=== PATIENT | female | born 1940 | race Caucasian/White ===

== ENCOUNTER 2017-01-02 13:41 | Inpatient (IN) | payer MEDICARE ==
[~2017-01-02] VITALS: Ht 154.9 cm; Wt 58.6 kg
[~2017-01-02 13:41] MED LIST: ALBU8.5H2 INH; ASPI-973 PO; ATRINH INH; CARV25TA2 PO; CLOP75TA3 PO; CYAN1TAB42 PO; INSLIS SUBQ; OMEG1CAP17 PO; PRAV40TA PO; VIT1CAPS8 PO
[2017-01-02 13:57] VITALS: BP 129/72; PULSE 68; O2SAT 91
--- NOTE | 2017-01-02 14:06 | ED.REPORT ---
HPI-Trauma Minor / Fall Date of Service January 02, 2017 ED Provider: Al Alexander MD Patient is a 76 year old female with a history of TIA, CHF, pace maker placement , COPD,diabetes, hyperlipidemia and hypertension who presents to the ED via EMS due to a fall at home. Associated symptoms include left hip pain and the inability to bear weight on the leg. The patient reports that she was able to stand after falling. Nursing Notes Stated Complaint: GLF Chief Complaint: Multiple Trauma/Fall Nursing Notes Reviewed: Yes Allergies: Coded Allergies: ciprofloxacin HCl (Verified Allergy, Mild, 01/02/17) metronidazole (Verified Allergy, Mild, 01/02/17) codeine (Verified Adverse Reaction, Mild, VOMITING IMMEDIATELY, 01/02/17) Scheduled Amlodipine (Amlodipine) 5 Mg Tablet 5 MG PO DAILY Carvedilol (Carvedilol) 25 Mg Tablet 25 MG PO BID Clopidogrel Bisulfate (Plavix) 75 Mg Tablet 75 MG PO DAILY Fluticasone/Salmeterol (Advair 250-50 Diskus) 60 Puff/Inh Disk 1 PUFF INHALATION BID Insulin Glargine (Lantus U100 Solostar Insulin Pen) 100 Unit/1 Ml Insuln.pen 23 UNIT SUBQ QAM Insulin Glargine (Lantus U100 Solostar Insulin Pen) 100 Unit/1 Ml Insuln.pen 21 UNIT SUBQ QPM Insulin Human Lispro (HumaLOG U100 Insulin Vial) 100 Unit/Ml Unit UNIT SUBQ TIDWM sliding scale insulin Lisinopril / HCTZ 20-25 mg (Lisinopril / HCTZ 20-25 mg) 1 Each Tablet 1 EACH PO DAILY Metformin (Glucophage) 1,000 Mg Tablet 500 MG PO BID [place]-3 Fatty Acids/Fish Oil (Fish Oil Conc 1,000 mg Softgel) 1 Each Capsule 1 EACH PO DAILY Pravastatin (Pravastatin) 40 Mg Tablet 40 MG PO DAILY Tiotropium [place] (Spiriva) 18 Mcg Cap.w.dev 18 MCG INHALATION DAILY Vit C/Vit E/Lutein/Min/[place]-3 (Ocuvite Softgel) 1 Each Capsule 1 EACH PO DAILY Scheduled PRN Albuterol HFA (Proair HFA) 8.5 Gm Hfa.aer.ad 1-2 PUFFS INH Q4H PRN PRN For Shortness of Breath General Time Seen by MD: 14:04 Chief Complaint Fall Hx Obtained From: Patient Arrived By: Ambulance Onset Occurred: Just prior to arrival Symptom Duration: Since onset Caused by: Fall on ground Location: Hip left Recent Healthcare: No recent hospitalization, Recent doctor visit Past Medical History Past Medical History Notes: Code status: no code Admitted to the hospotal 07/21-07/26 in August 2015for urinary tract sepsis, syncope, alterned mental status, thrombocytopenia, and encephalopathy due to sepsis PCP: Dr. Dragan Mauro Past Medical History Hypertension (awaiting workup by CT imaging to evaluate for possible renal artery stenosis) Severe cardiomyopathy-status post AICD ([employer], implanted [address] Lama) Diabetes, type II History of TIA Chronic left bundle-branch block Code status: DNR/Do not intubate Reports: COPD, Cancer, Congestive heart failure, Diabetes mellitus, Hyperlipidemia, Hypertension, Stroke, Transient ischemic attack Reports: Urinary tract infection Past Surgical History Reports: Cataract surgery Reports: Pacemaker insertion Smoking History Current Every Day Smoker, Light Tobacco Smoker Social History Last admit was listed as DO NOT RESUSCITATE DO NOT INTUBATE Alcohol Use: Denies alcohol use Drug Use: Denies drug use Other Social History: Lives alone, Local resident Ambulatory Status Independent Review of Systems Constitutional: Denies: Fever Respiratory: Denies: Non-productive cough, Shortness of breath Musculoskeletal: Reports: Extremity pain Neurologic: Reports: Problem walking Complete sys rev & neg: except as marked. GI: Denies: Abdominal pain Physical Exam Initial Vital Signs Vital Signs (First) Date Time Temp Pulse Resp B/P Pulse Ox O2 Delivery O2 Flow Rate FiO2 01/02/17 13:57 36.7 68 129/72 91 Room Air Initial VS: Reviewed General/Constitutional: Awake, Alert Neck: Atraumatic, Supple, Full range of motion Head / Eyes: Atraumatic, Normocephalic, PERRL, EOMI Respiratory / Chest: Atraumatic, No respiratory distress Cardiovascular: Heart rate NL, Regular rhythm, Heart sounds NL Lower Extremity / Pelvis / MS: Atraumatic, Full range of motion, Neurologic intact, Vascular intact from range of motion of the left hip Skin: Atraumatic, Color NL, No rash, Warm, Dry Neurologic: Oriented X3, Speech NL, No motor deficits, No sensory deficits distal pulses intact Psychiatric: Affect NL, Mood NL Interpretation & Diagnostics Interpretation & Diagnostics: HIP CT: IMPRESSION: Subcapital left femoral neck fracture. Possible subtle nondisplaced fracture of the right pubic body, however recommend clinical correlation to point tenderness since this is technically indeterminate. Diffuse osteopenia Dictated by: Lucio Black M.D. on 01/02/2017 at 15:54 Approved by: Lucio Black M.D. on 01/02/2017 at 15:59 Lab Results Interpretation Result Diagram: 01/03/17 0535 01/03/17 0535 Test 01/02/17 14:08 01/02/17 15:09 01/02/17 15:38 Total Bilirubin 0.2mg/dL (0.0-1.2) Aspartate Amino Transf (AST/SGOT) 27U/L (0-50) Alanine Aminotransferase (ALT/SGPT) 18U/L (0-32) Alkaline Phosphatase 57U/L (25-165) Troponin T < 0.010ug/L (0.0-0.011) Total Protein 6.8g/dL (6.4-8.4) Albumin 3.5g/dL (3.4-5.0) Parathyroid Hormone (Intact) 92pg/mL (15-65) Urine Color Yellow (YELLOW) Urine Appearance Clear (CLEAR,HAZY) Urine pH 6.0 (5.0-8.0) Urine Specific [place] 1.010 (1.003-1.035) Urine Protein Negativemg/dL (NEG,TRACE) Urine Glucose (UA) 500mg/dL (NEGATIVE) Urine Ketones Negativemg/dL (NEGATIVE) Urine Occult Blood Negative (NEGATIVE) Urine Nitrite Positive (NEGATIVE) Urine Bilirubin Negative (NEGATIVE) Urine Urobilinogen Normalmg/dL (NORMAL) Urine Leukocyte Esterase Trace (NEGATIVE) Urine RBC 0-2/hpf (0-2) Urine WBC 11-50/hpf (0-5) Urine Epithelial Cells Few/hpf (NONE-MOD) Urine Crystals None seen (NONE SEEN) Urine Bacteria Many/hpf (NONE-FEW) Urine Hyaline Casts None/lpf (NONE) Urine Granular Casts None seen (NONE SEEN) Urine Waxy Casts None seen (NONE SEEN) Urine Red Blood Cell Casts None seen (NONE SEEN) Urine White Blood Cell Casts None seen (NONE SEEN) Urine Mucus None seen (None Seen) Urine Trichomonas None seen (NONE SEEN) Urine Yeast None (NONE SEEN) Urinalysis Comment None Urine Culture Reflexed Indicated ECG Interpretation ECG Interpretation: paced rate Time: 14:09 Interpreted by: ED physician Normal ECG Interpretation: Normal rate (67) X-Ray Interpretation Xray Interpretation: IMPRESSION: Left femoral neck fracture Dictated by: Lucio Black M.D. on 01/02/2017 at 15:12 Approved by: Lucio Black M.D. on 01/02/2017 at 15:14 X-Ray Ordered: Hip left Interpretation / Wet Read by: Interpret - Radiologist Re-Eval/Medical Decision Med Decision/Clinical Course 76-year-old female history of CHF, pacemaker, TIA presenting with, will fall and left hip fracture. Discussed with orthopedics. Admitted to hospitalist. LLE neurovascularly intact vital signs stable admission. Source of Hx: Old records Re-Evaluation/Progress #1: Time of Eval: 15:37 Re-Evaluation/Progress Note: Discussed results and plan for admit. The patient understands and agrees to the plan for admit. All questions were addressed. Re-Evaluation/Progress #2: Time of Eval: 16:26 Re-Evaluation/Progress Note: Discussed code status: no code Consultation #1: Referral / Consult Name: Gurwinder Duke DO Consulted With: On-call physician (ortho) Call Returned at: 15:20 Channel Marketing Coordinator: Agrees with eval, Agrees with plan Note: Recommends the patient be admitted Consultation #2: Referral / Consult Name: Markel Hahn MD Consulted With: Hospitalist Call Returned at: 16:24 Channel Marketing Coordinator: Agrees with eval, Agrees with plan, Accepts admit Counseled Regarding: Diagnosis, Lab results, Need for admission Discharge & Departure Impression: Primary Impression: Hip fracture Encounter type: initial encounter Fracture type: closed Laterality: left Qualified Code: S72.002A - Fracture of unspecified part of neck of left femur, initial encounter for closed fracture Additional Impression: UTI (urinary tract infection) Urinary tract infection type: site unspecified Hematuria presence: without hematuria Qualified Code: N39.0 - Urinary tract infection, site not specified Disposition: ADMITTED TO HOSPITAL Discharge Condition All VS Reviewed: Yes Condition: Stable Referrals: Shawn Witt (PCP) Scribe Attestation Portions of this note were transcribed by Felicity Tolentino. I, Dr. Kalyani Tomlinson personally performed the history, physical exam and medical decision-making; I reviewed and confirmed the accuracy of the information in the transcribed note. Signed by: Sindhu Van, 01/02/17 and 1600 copies to: Shawn Witt Ben M MD January 02, 2017 14:06 Lisa Tolentino January 02, 2017 14:37 Dictated by: Lucio Black M.D. on 01/02/2017 at 15:12 Approved by: Lucio Black M.D. on 01/02/2017 at 15:14 X-Ray Ordered: Hip left Interpretation / Wet Read by: Interpret - Radiologist Re-Eval/Medical Decision Source of Hx: Old records Re-Evaluation/Progress #1: Time of Eval: 15:37 Re-Evaluation/Progress Note: Discussed results and plan for admit. The patient understands and agrees to the plan for admit. All questions were addressed. Re-Evaluation/Progress #2: Time of Eval: 16:26 Re-Evaluation/Progress Note: Discussed code status: no code Consultation #1: Referral / Consult Name: Gurwinder Duke DO Consulted With: On-call physician (ortho) Call Returned at: 15:20 Channel Marketing Coordinator: Agrees with eval, Agrees with plan Note: Recommends the patient be admitted Consultation #2: Referral / Consult Name: Markel Hahn MD Consulted With: Hospitalist Call Returned at: 16:24 Channel Marketing Coordinator: Agrees with eval, Agrees with plan, Accepts admit Counseled Regarding: Diagnosis, Lab results, Need for admission Discharge & Departure Impression: Primary Impression: Hip fracture Encounter type: initial encounter Fracture type: closed Laterality: left Qualified Code: S72.002A - Fracture of unspecified part of neck of left femur, initial encounter for closed fracture Additional Impression: UTI (urinary tract infection) Urinary tract infection type: site unspecified Hematuria presence: without hematuria Qualified Code: N39.0 - Urinary tract infection, site not specified Disposition: ADMITTED TO HOSPITAL Discharge Condition All VS Reviewed: Yes Condition: Stable Referrals: Shawn Witt (PCP) Sindhu Attestation Portions of this note were transcribed by Felicity Tolentino. I, Dr. Kalyani Tomlinson personally performed the history, physical exam and medical decision-making; I reviewed and confirmed the accuracy of the information in the transcribed note. Signed by: Sindhu Van, 01/02/17 and 1600 copies to: Shawn Witt Ben M MD January 02, 2017 14:06 Lisa Tolentino January 02, 2017 14:37
[2017-01-02 14:10] LABS: BASOPHILS % (AUTO) 0.4 % (0-3); EOSINOPHILS % (AUTO) 1.8 % (0-5); MONOCYTES % (AUTO) 15.5 % (4-12); Mean Corpuscular Volume 87.8 fL (81-100); Platelet Count 132 bil/L (150-400)
[2017-01-02 14:32] LABS: TROPONIN T < 0.010 ug/L (0.0-0.011)
[2017-01-02 14:41] LABS: Magnesium 1.4 mg/dL (1.6-2.6)
[2017-01-02] MEDS ORDERED: Ondansetron 2 mg/mL 2 mL Inj IVPUSH PRN ×2 (15:10→16:30)
--- NOTE | 2017-01-02 15:15 | DRSVH ---
PROCEDURE: X-RAY PELVIS W/LAT HIP (LT) ([id number]) INDICATIONS: pain TECHNIQUE: AP pelvis with lateral view(s) of the left hip(s). COMPARISON: None. FINDINGS: Bones: Left subcapital femoral neck fracture. Chronic lower lumbar disc generation mild bilateral hip osteoarthritis. Soft tissues: The visualized bowel gas pattern is normal. No suspicious soft tissue calcifications. IMPRESSION: Left femoral neck fracture Dictated by: Lucio Black M.D. on 01/02/2017 at 15:12 Approved by: Lucio Black M.D. on 01/02/2017 at 15:14
[2017-01-02] MEDS ORDERED: cefTRIAXone Inj 1,000 MG in Dextrose 5% Minibag Plus 50 ML IV ONE (15:25)
[2017-01-02 16:01] LABS: APPEARANCE,URINE CLEAR (CLEAR,HAZY); COLOR,URINE YELLOW (YELLOW); OCCULT BLOOD,URINE NEGATIVE (NEGATIVE); UROBILINOGEN,URINE NORMAL (NORMAL)
--- NOTE | 2017-01-02 16:01 | DRSVH ---
PROCEDURE: CT HIP LEFT W/O CONTRAST ([id number]) INDICATIONS: L hip fracture TECHNIQUE: Noncontrast 3 mm axial sections acquired through the bony pelvis. Additional 3 mm axial sections acq uired through the symptomatic hip joint, with coronal and sagittal reformats. COMPARISON: [facility], CR, XR PELVIS W LATERAL HIP LT, 01/02/2017, 14:28. FINDINGS: Image quality: Excellent. Bones: Subcapital left femoral neck fracture is noted as previously described on the prior radiograph . There is also minimal cortical step off at the right pubic body for example image 18 series 3, rais ing possibility of subtle nondisplaced fracture. There is diffuse osteopenia. Left hip loss arthritis and spurring. Soft tissues: Grossly unremarkable IMPRESSION: Subcapital left femoral neck fracture. Possible subtle nondisplaced fracture of the right pubic body, however recommend clinical correlation to point tenderness since this is technically indeterminate. Diffuse osteopenia Dictated by: Lucio Black M.D. on 01/02/2017 at 15:54 Approved by: Lucio Black M.D. on 01/02/2017 at 15:59
[2017-01-02 16:08] VITALS: BP 146/86; PULSE 66; O2SAT 90
[2017-01-02] MEDS ORDERED: AMLO5TAB2 PO (16:30)
[2017-01-02] MEDS ORDERED: ADV250INH INHALATION (16:30)
[2017-01-02] MEDS ORDERED: Alum-Mag Hydrox-Simeth 30 mL Suspension PO PRN (16:30)
[2017-01-02] MEDS ORDERED: INSU100I13 SUBQ ×2 (16:35)
[2017-01-02] MEDS ORDERED: METF1000 PO (16:35)
[2017-01-02] MEDS ORDERED: LISI1TAB11 PO (16:35)
[2017-01-02] MEDS ORDERED: TIOT18CA3 INHALATION (16:36)
[2017-01-02] MEDS ORDERED: Albuterol 2.5 mg/3 mL Inhalation Solution NEB PRN ×2 (16:50→20:00)
[2017-01-02] MEDS ORDERED: Glucose 40% Oral Gel 15 Gm Tube PO PRN (16:50)
[2017-01-02] MEDS ORDERED: Magnesium Sulf 4 Gm/100 mL H2O 4 GM in IV Premix 1 EACH IV ONE (16:55)
--- NOTE | 2017-01-02 17:01 | PCM.HPMED ---
Subjective Date of Service January 02, 2017 Primary Provider: Admitting Physician: Markel Hahn MD Primary Care Physician: Shawn Witt Attending Physician: Markel Hahn MD Chief Complaint: Ground-level fall left hip fracture History of Present Illness: 76-year-old female presents to the emergency room after falling over in her bedroom next to her dresser. At this point in time she is somewhat confused because she has already been receiving IV narcotics but she tells me that she had gone to see her primary care provider as she has been having what sounds like sinusitis for the last 3-4 days and her blood sugars had been up. He tells me that when her blood sugars are up she sometimes goes disoriented and thinks that is what happened when she collapsed and broke her hip this morning. She denies having chest pain, palpitations, or other significant symptoms just some chest congestion and difficulty breathing/cold symptoms. Review of Systems: Gen.: No fevers chills weight loss weight gain Eyes: no visual disturbances or blurring vision HEENT: No nose/throat drainage, no pain in ears or throat, no hearing loss Lymph: No lymph nodes noted Cardiac: No chest pain, orthopnea, PND, palpitations , pedal edema or dyspnea on exertion Pulmonary: no cough, wheezing or bringing up of sputum GI: No anorexia nausea vomiting blood or black in the stool : no dysuria hematuria urinary frequency or decrease in urine output Musculoskeletal: Joint swelling no joint pain no new muscle aches or back pain Neuro: No syncope, seizures no loss of consciousness no new focal weakness, numbness or tingling Psychiatric: New new anxiety insomnia or depression Endocrine: No new heat or cold intolerances polyuria or polydipsia Hematology: No lymphadenopathy or easy bleeding or bruising noted skin: No new rashes, stasis dermatitis Allergies Coded Allergies: ciprofloxacin HCl (Verified Allergy, Mild, 01/02/17) metronidazole (Verified Allergy, Mild, 01/02/17) codeine (Verified Adverse Reaction, Mild, VOMITING IMMEDIATELY, 01/02/17) Home Medications 1. ASA 81mg daily 2. Carvedilol 25mg PO BID 3. Clopidogrel 75mg PO daily 4. B07-bdpmv acid 5. Fluticasone/Salmeterol 6. Glargine 7. Lispro 8. Ipratropium bromide 9. Lisinopril 10. Magnesium oxide 11. Metformin 12. Pravastatin 13. Fish oil 14. Ocuvite softgel 15. Trazodone PRN 16. Albuterol PRN PMH 1. CHF s/p AICD placement (2009). 2. COPD. 3. TIA. 4. HTN. 5. DM. 6. HLD. 7. History of recurrent UTI. 8. Chronic left bundle branch block. Surgical History 1. AICD placement. 2. Cataract surgery. Home Medications AM team to confirm home medications and dosing. Social History Occupation: retired Hx Alcohol Use: No Hx Substance Use: No Hx Tobacco Use: Yes Smoking Status: Current Every Day Smoker Living Arrangement: Alone Family HX no known history of early heart disease or cancer Social History Hx Alcohol Use: No Hx Substance Use: No Hx Tobacco Use: Yes Smoking Status: Current Every Day Smoker, Light Tobacco Smoker Exam Vital Signs Vital Sign - Last Date Time Temp Pulse Resp B/P Pulse Ox O2 Delivery O2 Flow Rate FiO2 01/02/17 16:08 66 146/86 90 Room Air 01/02/17 13:57 36.7 Exam Gen.- A+ O 3 no apparent distress. Eyes- open conjunctiva clear, pupils equal nonicteric Mouth- oral mucosa moist, no exudate ENT- ears normal, nose normal Neck- supple/trach midline CVS- RRR no murmur or gallop Lungs- CTA GI- NABS/NT soft Musc- moving 4 no obvious deformity Neuro- cranial nerves II through XII intact to gross examination, nonfocal Skin- warm and dry, no rashes/lesions/wounds noted Psych- pleasant and appropriate, Lab and Diagnostics Result Diagram: 01/02/17 1408 01/02/17 1408 X-Rays, CTs and MRIs PROCEDURE: CT HIP LEFT W/O CONTRAST ([id number]) Subcapital left femoral neck fracture. Possible subtle nondisplaced fracture of the right pubic body, however recommend clinical correlation to point tenderness since this is technically indeterminate. Diffuse osteopenia Dictated by: Lucio Black M.D. on 01/02/2017 at 15:54 PROCEDURE: X-RAY PELVIS W/LAT HIP (LT) ([id number]) Left femoral neck fracture Dictated by: Lucio Black M.D. on 01/02/2017 at 15:12 12-lead ECG EKG rate 67, QTC 503 ms, no acute ST segment changes personally reviewed by me . Atrial-sensed ventricular-paced complexes . When compared with ECG of 17-Nov-2015 10:16:18, . No significant change Cardiac Echo Impressions Echocardiogram Report Interpretation Summary Left ventricular ejection fraction is estimated to be .55. Spectral Doppler of the mitral valve is reversed, with an E/A wave ratio < 1.0. There is a pacemaker lead in the right ventricle. There is mild aortic valve sclerosis. There is no significant valvular heart disease. Electronically signed by: Frank Yan on Reading Physician:11/05/2016 11:45 AM Assessment & Plan 76-year-old female complex medical history pacemaker included kathleen has left hip fracture. She is on Plavix. Her echo done 12/06 shows her EF to be 55% her EKG looks good her cardiac enzymes are normal no further testing needed from cardiac perspective. She is at least medium risk due to history though. She is high risk for complications from a pulmonary standpoint, it sounds like she has COPD and there is an exacerbation. I would recommend aggressive pulmonary toilet perioperatively and I am treating UTI/COPD with Rocephin if she were not immediately preoperative I would probably go ahead and give her some steroids. Preoperative CXR still pending. Left hip fracture- nothing by mouth at midnight, surgery planned with Dr. Duke in a.m. -Tums 3 times a day, cholecalciferol, PTH ordered -UA likely dirty catch but will dose Rocephin to clean as there are bacteria. CAD/HTN/lipid -Hold lisinopril/hctz and clopidogrel preop -Continue Coreg, aspirin, statin, -Adding when necessary hydralazine COPD exacerbation-URI/sinusitis - continue albuterol when necessary and I will give nebs preop vigorous pulmonary toilet I asked an Acapella -Continue home Spiriva and albuterol MDI when necessary -Adding Rocephin, Mucinex, benzonatate and Flonase 01/02 Insulin-dependent diabetes -Cutting dose from 25 units and 21 units a.m. and p.m. to 14 units twice a day adding medium dose sliding scale -Hyperglycemia will supplement and follow with sliding scale as needed Hypomagnesemia-4g replacement ordered 01/02, f/u in am Tobacco abuse-recommend cessation, nicotine replacement Prophylaxis-DVT with SCDs and then per ortho, GI not indicated Disposition-patient comes from home most likely going to SNF and is DO NOT RESUSCITATE confirmed 01/02 Markel Hahn MD January 02, 2017 17:01
[2017-01-02] MEDS ORDERED: Magnesium Hydroxide 355 mL Oral Suspension PO PRN (17:20)
[2017-01-02 17:25] VITALS: BP 156/75; PULSE 65; RESP 18
[2017-01-02] MEDS: Insulin LISPRO 300 Unit/3 mL Inj SUBQ SCH ×2 (17:30→21:14)
[2017-01-02] MEDS: 0.9% NaCl + KCl 20 mEq/L 1,000 ML IV SCH (17:34)
[2017-01-02] MEDS: Ondansetron 2 mg/mL 2 mL Inj IVPUSH PRN (18:08)
--- NOTE | 2017-01-02 18:25 | DRSVH ---
PROCEDURE: X-RAY CHEST ONE VIEW, PORTABLE ([id number]) INDICATIONS: 76 year-old female for scheduled left hip fracture surgery. TECHNIQUE: One view of the chest was acquired. COMPARISON: [facility], CR, XR CHEST 1VW (PORTABLE), 11/17/2015, 11:00. [facility], CR, XR CHEST 1VW (PORTABLE), 09/20/2015, 16:02. [facility], CR, XR CHEST 1VW (POR TABLE), 07/22/2015, 10:09. FINDINGS: Surgical changes and devices: Left chest wall biventricular pacer/ICD is again noted. Lungs and pleura: No pleural effusions or pneumothorax. Lungs are clear. Mediastinum: Mediastinal contours appear normal. Heart size is normal. Bones and chest wall: No suspicious bony lesions. Overlying soft tissues appear unremarkable. IMPRESSION: No acute cardiopulmonary disease. Dictated by: Oscar Martin M.D. on 01/02/2017 at 18:23 Approved by: Oscar Martin M.D. on 01/02/2017 at 18:24
--- NOTE | 2017-01-02 18:26 | NUR ---
Admit note- Received patient from emergency dept. Alert and oriented. Complained of left hip pain when moving from stretcher to bed. Medicated with Morphine for discomfort, and patient promptly vomited. MD in room and aware. Zofran given and effective for nausea. Oriented to room, call light, procedures,etc. Tele-V paced 80's.
[2017-01-02 18:31] VITALS: PULSE 79
[2017-01-02] MEDS: Albuterol 2.5 mg/3 mL Inhalation Solution NEB SCH ×2 (18:32→21:35)
[2017-01-02 20:20] VITALS: BP 165/80; PULSE 85; RESP 18; O2SAT 90
[2017-01-02] MEDS: guaiFENesin 600 mg ER12 Tablet PO SCH (20:30)
[2017-01-02] MEDS: Senna-Docusate 8.6-50 mg Tablet PO SCH (21:14)
[2017-01-02] MEDS: Insulin GLARgine 100 Unit/mL Syringe SUBQ SCH (21:15)
[2017-01-02] MEDS: Fluticasone-Salmererol 250-50 Inhaler INHALATION SCH (21:15)
[2017-01-03] VITALS (25 sets, daily range): BP systolic 114–175; BP diastolic 58–85; PULSE 72–80; RESP 15–25; O2SAT 85–98
[2017-01-03] MEDS: Albuterol 2.5 mg/3 mL Inhalation Solution NEB SCH ×6 (01:35→21:16)
[2017-01-03] MEDS: 0.9% NaCl + KCl 20 mEq/L 1,000 ML IV SCH ×3 (03:33→22:55)
--- NOTE | 2017-01-03 03:38 | NUR ---
Pain/Activity Patient receiving 2mg of MS IVP with effective results. Complains of no pain upon reassessments. No emesis noted with administration this shift. Moves around in bed pretty much independently. Able to lift bottom up to place bedpan underneath. Made NPO at midnight in preparation of surgery later on today.
[2017-01-03 05:56] LABS: BASOPHILS % (AUTO) 0.3 % (0-3); EOSINOPHILS % (AUTO) 1.6 % (0-5); Mean Corpuscular Hemoglobin 30.5 pg (27.0-35.0); Mean Corpuscular Volume 85.5 fL (81-100); NEUTROPHILS % (AUTO) 76.4 % (40-74); Platelet Count 102 bil/L (150-400)
[2017-01-03 06:18] LABS: Magnesium 1.9 mg/dL (1.6-2.6)
[2017-01-03] MEDS: Insulin LISPRO 300 Unit/3 mL Inj SUBQ SCH ×4 (08:08→22:29)
[2017-01-03] MEDS: Fluticasone-Salmererol 250-50 Inhaler INHALATION SCH ×2 (08:09→22:27)
[2017-01-03] MEDS: Vitamins C,E, Omega-3, Mineral Tablet PO SCH (08:09)
[2017-01-03] MEDS: Tiotropium 18mcg/Cap 5 Capsule Inhaler Kit INHALATION SCH (08:09)
[2017-01-03] MEDS: Omega-3 Fatty Acids 1,000 mg Capsule PO SCH (08:09)
[2017-01-03] MEDS: Fluticasone 0.05% 15 Spray/2 Gm 16 Gm Nasal Spray NASAL SCH (08:13)
[2017-01-03] MEDS: guaiFENesin 600 mg ER12 Tablet PO SCH ×2 (08:15→22:25)
[2017-01-03] MEDS: Senna-Docusate 8.6-50 mg Tablet PO SCH ×2 (08:15→22:26)
[2017-01-03] MEDS: Insulin GLARgine 100 Unit/mL Syringe SUBQ SCH ×2 (08:46→22:28)
[2017-01-03] MEDS ORDERED: Albuterol 2.5 mg/3 mL Inhalation Solution NEB PRN (09:35)
[2017-01-03] MEDS ORDERED: Propofol 10,000 mCg/mL 20 mL Inj ONE (12:58)
[2017-01-03] MEDS ORDERED: Ondansetron 2 mg/mL 2 mL Inj ONE (12:58)
[2017-01-03] MEDS ORDERED: Phenylephrine/NS-PF 100 mCg/mL 5 mL Syringe IVPUSH ONE (12:58)
[2017-01-03] MEDS ORDERED: fentaNYL-PF 50 mCg/mL 2 mL Inj ONE (12:58)
[2017-01-03] MEDS ORDERED: Dexamethasone 4 mg/mL Inj ONE (12:58)
--- NOTE | 2017-01-03 15:19 | PCM.PNMED ---
Subjective Date of Service January 03, 2017 Subjective Patient has no new complaints of dyspnea, chest pain, nausea or vomiting. She states she is fine "everything considered". Exam Vital Signs Vital Sign - Last Date Time Temp Pulse Resp B/P Pulse Ox O2 Delivery O2 Flow Rate FiO2 01/03/17 13:51 37.1 75 18 155/75 93 Nasal Cannula 2.00 01/02/17 17:25 97 Intake and Output 01/02/17 01/02/17 01/03/17 Cumulative From/Thru 15:00 23:00 07:00 01/02/17 13:57 - 01/03/17 06:46 Intake Total 0 ml 1388 ml 1388 ml Output Total 0 ml 450 ml 450 ml Balance 0 ml 938 ml 938 ml Intake Oral 0 ml 200 ml 200 ml IV Total 1188 ml 1188 ml Output Urine Total 0 ml 450 ml 450 ml # Bowel Movements 0 0 Exam Gen.- A+ O 3 no apparent distress. Eyes- open conjunctiva clear, pupils equal nonicteric ENT- ears normal, nose normal Neck- supple/trach midline CVS- RRR (-)mumrur/gallop Lungs- CTA GI- NABS/NT soft Musc- moving 4 no obvious deformity. Surprisingly she is even moving her left leg where the fracture, her hip is flexed her knee is a 30 angle Neuro- cranial nerves II through XII intact to gross examination, nonfocal Skin- warm and dry, no rashes/lesions/wounds noted Psych- pleasant and appropriate, Lab and Diagnostics Result Diagram: 01/03/17 0535 01/03/17 0535 X-Rays, CTs and MRIs PROCEDURE: CT HIP LEFT W/O CONTRAST (72111) Subcapital left femoral neck fracture. Possible subtle nondisplaced fracture of the right pubic body, however recommend clinical correlation to point tenderness since this is technically indeterminate. Diffuse osteopenia Dictated by: Lucio Black M.D. on 01/02/2017 at 15:54 PROCEDURE: X-RAY PELVIS W/LAT HIP (LT) ([id number]) Left femoral neck fracture Dictated by: Lucio Black M.D. on 01/02/2017 at 15:12 12-lead ECG EKG rate 67, QTC [address], [address] segment changes personally reviewed by me . Atrial-sensed ventricular-paced complexes . When compared with ECG of 17-Nov-2015 10:16:18, . No significant change Cardiac Echo Impressions Echocardiogram Report Interpretation Summary Left ventricular ejection fraction is estimated to be .55. Spectral Doppler of the mitral valve is reversed, with an E/A wave ratio < 1.0. There is a pacemaker lead in the right ventricle. There is mild aortic valve sclerosis. There is no significant valvular heart disease. Electronically signed by: Frank Yan on Reading Physician:11/05/2016 11:45 AM Assessment & Plan 76-year-old female complex medical history pacemaker included kathleen has left hip fracture. She is on Plavix. 01/03 patient lungs are improved, O2 needs are down they sound better. Blood sugar 128 this morning, no changes to diabetic regimen at present. Blood pressure adequately controlled no changes. Perhaps 01/04 postop day 1 will make some adjustments to blood pressure/diabetic regimen. Patient medically optimized to go to OR. Left hip fracture- nothing by mouth at midnight, surgery planned with Dr. Dkue -Tums 3 times a day, cholecalciferol, PTH ordered -UA likely dirty catch but will dose Rocephin to clean as there are bacteria. CAD/HTN/lipid -Echo EF 55% 12/06/16 no concerning EKG changes 01/02 -Hold lisinopril/hctz and clopidogrel preop -Continue Coreg, aspirin, statin, -Adding when necessary hydralazine COPD exacerbation-URI/sinusitis- CXR no active disease - continue albuterol when necessary and I will give nebs preop vigorous pulmonary toilet I asked an Acapella -Continue home Spiriva and albuterol MDI when necessary -Adding Rocephin, Mucinex, benzonatate and Flonase 01/02 Insulin-dependent diabetes -Cutting dose from 25 units and 21 units a.m. and p.m. to 14 units twice a day adding medium dose sliding scale -Hyperglycemia will supplement and follow with sliding scale as needed Hypomagnesemia-4g replacement ordered 01/02, f/u in am Tobacco abuse-recommend cessation, nicotine replacement Prophylaxis-DVT with SCDs and then per ortho, GI not indicated Disposition-patient comes from home most likely going to SNF and is DO NOT RESUSCITATE confirmed 01/02 Markel Hahn MD January 03, 2017 15:19
--- NOTE | 2017-01-03 15:42 | NUR ---
Pain/Repositioning Patient complained of 8/10 L hip pain. Medicated with 2mg IV morphine prior to surgery. Patient states it is effective at decreasing pain but not taking it all away. Encouraged repositioning in bed, patient prefers to have both legs bent at hip. Encouraged patient to keep legs straight but patient often grimaces and is guarded when trying to reposition left in bed. Pedal pulses present.
[2017-01-03] MEDS: cefTRIAXone Inj 1,000 MG in Dextrose 5% Minibag Plus 50 ML IV SCH ×2 (15:50→16:30)
--- NOTE | 2017-01-03 15:51 | NUR ---
To OR Patient was saline locked, removed from telemetry. Given chance to void. Taken up to OR on hospital bed with 2LPM O2.
[2017-01-03] MEDS ORDERED: Sodium Biphos-Phos 133 mL Enema RECTAL PRN (16:10)
[2017-01-03] MEDS ORDERED: Magnesium Hydroxide 10 mL Oral Concentration PO PRN (16:10)
[2017-01-03] MEDS ORDERED: Polyethylene Glycol (PEG) 17 Gm Powder PO PRN (16:10)
[2017-01-03] MEDS ORDERED: diphenhydrAMINE 25 mg Capsule PO PRN (16:10)
[2017-01-03] MEDS ORDERED: Lactated Ringer's 1,000 ML IV ONE (16:19)
[2017-01-03] MEDS: Sodium Chloride LOK Flush 10 mL Syringe IV SCH (16:30)
[2017-01-03] MEDS ORDERED: Lactated Ringer's 1,000 ML IV SCH (16:56)
[2017-01-03] MEDS ORDERED: Lactated Ringer's 500 ML IV PRN (16:56)
[2017-01-03] MEDS ORDERED: EPHEDrine Sulfate 50 mg/mL Inj IVPUSH PRN (17:00)
[2017-01-03] MEDS ORDERED: Atropine 0.4 mg/mL Inj IVPUSH PRN (17:00)
[2017-01-03] MEDS ORDERED: Phenylephrine 10,000 mCg/mL Inj IVPUSH PRN (17:00)
[2017-01-03] MEDS ORDERED: Ondansetron 2 mg/mL 2 mL Inj IVPUSH PRN (17:00)
[2017-01-03] MEDS ORDERED: Albuterol-Ipratropium 3 mL Inhalation Solution NEB PRN (17:00)
[2017-01-03] MEDS ORDERED: Lidocaine 1%-Epi 1:100,000 20 mL Inj INJ ONE (17:01)
--- NOTE | 2017-01-03 17:21 | PCM.HPANE ---
Patient Data Surgeon Admitting Provider:Markel Hahn MD Attending Provider:Markel Hahn MD Primary Care Physician:Shawn Witt Other Provider: Reason for Visit Left Hip Fracture LEFT HIP FRACTURE Ht/WT & BMI Height (Feet): 5 Height (Inches): 1.00 Weight (Kilograms): 58.200 Body Mass Index 24.56 Allergies Coded Allergies: ciprofloxacin HCl (Verified Allergy, Mild, 01/02/17) metronidazole (Verified Allergy, Mild, 01/02/17) codeine (Verified Adverse Reaction, Mild, VOMITING IMMEDIATELY, 01/02/17) Past Anesthesia History Anesthesia History: Denies:: Abnormal Airway, Anesthesia Reactions, Difficult Intubation, Fam Anesthesia Reaction, Fam Malignant Hypertherm, Malignant Hyperthermia Diabetes History Hx Diabetes?: Yes Current Bedside Blood Glucose: 128 MRSA MRSA: No Medications Reported Medications Tiotropium Sharon (Spiriva)18 Mcg Cap.w.dev18 Mcg INHALATION DAILY 01/02/17 Metformin (Glucophage)1,000 Mg [id number] Mg PO BID 01/02/17 Lisinopril / HCTZ 20-25 mg 1 Each Tablet1 Each PO DAILY 01/02/17 Insulin Glargine (Lantus U100 Solostar Insulin Pen)100 Unit/1 Ml Insuln.pen21 Unit SUBQ QPM 01/02/17 Insulin Glargine (Lantus U100 Solostar Insulin Pen)100 Unit/1 Ml Insuln.pen23 Unit SUBQ QAM 01/02/17 Amlodipine 5 Mg Tablet5 Mg PO DAILY 01/02/17 Fluticasone/Salmeterol (Advair 250-50 Diskus)60 Puff/Inh Disk1 Puff INHALATION BID 01/02/17 Insulin Human Lispro (HumaLOG U100 Insulin Vial)100 Unit/Ml Unit Unit SUBQ TIDWM sliding scale insulin 09/20/15 Albuterol HFA (Proair HFA)8.5 Gm Hfa.aer.ad1-2 Puffs INH Q4H PRN For Shortness of Breath #9 07/21/15 Pravastatin 40 Mg Hvgzmt66 Mg PO DAILY Ref 0 05/04/15 Clopidogrel Bisulfate (Plavix)75 Mg Jatqai52 Mg PO DAILY 30 Days Ref 0 05/04/15 Vit C/Vit E/Lutein/Min/[place]-3 (Ocuvite Softgel)1 Each Capsule1 Each PO DAILY 05/04/15 [place]-3 Fatty Acids/Fish Oil (Fish Oil Conc 1,000 mg Softgel)1 Each Capsule1 Each PO DAILY 05/04/15 Carvedilol 25 Mg Aschcd68 Mg PO BID Ref 0 05/04/15 Discontinued Reported Medications Cyanocobalamin/Folic Acid (Vitamin Q03-Ktlvq Acid Tablet)1 Each Tablet1 Each PO DAILY 05/04/15 Ipratropium Sharon (Atrovent HFA)200 Puff/12.9 Gm Inhaler2 Puff INH QID #1 INH Ref 0 05/04/15 Aspirin 81 Mg Rerplp23 Mg PO DAILY Ref 0 05/04/15 History History of ENT Problems?: Yes HEENT History: Positive for:: Cataracts (09 surgery) Sinus Problem (nasal drainage) Denies:: Abnormal Airway Difficult Intubation Dysphagia Glaucoma Hearing Problem TMJ Denture Type: None Teeth Condition: Missing Teeth Hx of Heart Problems?: Yes Cardiovascular History: Positive for:: AICD Cardiac Surgery (pacemaker) Congestive Heart Failure Hypertension Irregular Heartbeat Pacemaker Denies:: Abdominal Aortic Aneurism Atrial Fibrillation Chest Pain Coronary Artery Disease Edema Heart Murmur Peripheral Vascular Rheumatic Fever Thrombophlebitis Valvular Heart Disease Hx of Respiratory Problem?: Yes Respiratory History: Positive for:: COPD Oxygen Administration Pneumonia Use of Inhalers / NEBS Denies:: Asthma Chest Surgery Cough Dyspnea Emphysema Hemoptysis Pulmonary Embolism Tuberculosis Use of C-PAP Machine Hx Neurologic Problems?: No Neurological History: Positive for:: CVA Dizziness Denies:: Alzheimer's Disease Dementia Headaches Multiple Sclerosis Parkinson's Disease Peripheral Neuropathy Seizures TIA Hx of GI Problems?: No Gastrointestinal History: Denies:: Cirrhosis Diverticulitis Gall Bladder Disease Gastroesphageal Reflux Gastrointestinal Bleeding Heartburn Hepatitis Hiatal Hernia Liver Disease Rectal Bleeding Hx of Problems?: Yes Genitourinary History: Positive for:: Urinary Tract Infection (current UTI) Denies:: HX of Hemodialysis Kidney Stones HX of Peritoneal Dialysis: No Female Hx: Denies:: Currently Endometriosis Pelvic Inflammatory Problems with Breasts? Skin History: Denies:: History Skin Disorders? Pressure Ulcers Hx Musculoskeletal Problems?: No Musculoskeletal History: Denies:: Back Injury Degenerative Joint Fibromyalgia Joint Replacement Musculoskeletal Trauma Myasthenia Gravis Osteoarthritis Rheumatoid Arthritis Systemic Lupus Hx of Psycho/Social Problems?: No Psycho Social History: Denies:: Anxiety Bipolar Disorder Hx Depression Suicide Attempt Hx Surgeries?: Yes (CRISPIN, HYSTERECTOMY,LT WRIST, pacer/defib placed) Hx Any Other Health Problems?: Yes Other History: Positive for:: Cancer (cervical) Hospitalization (PACEMAKER,STOMACH PAIN, UTI) Denies:: Endocrine Disease Thyroid Disease History Blood Transfusions: Positive for:: Accept Blood Products? Denies:: Blood Transfuse Reaction Blood Transfusions Hx Diabetes: YesBedside Blood Glucose: 128 Hx Alcohol Use: NoHx Substance Use: No Smoking Status: Current Every Day Smoker Light Tobacco Smoker Have You Smoked inLast 12 mo: Yes Stop/Bang Treated for Sleep Apnea?: No Do You Have a CPAP Machine?: No S-Snoring: Do You Snore Loudly: No T-Tired: feel tired, fatigued: Yes O-Obsered: Observed not breath: No P-Blood Pressure: treated: Yes B- Body Mass Index > 35 kg/m2: No A- Age over 50: Yes N- Neck Large Circumference: No G- Gender Male: No KALIN Total Score: 2 Risk Assessment Category Category 1A: Patient has history of documented sleep apnea, and HAS NOT received any narcotic, sedative or anesthesia administration during this stay. Category 1B: Patient has history of documented sleep apnea, and HAS received any narcotic , sedative or anesthesia administration during this stay Category 2: Patient has SUSPECTED Obstructive Sleep Apnea, and HAS received any narcotic , sedative or anesthesia administration during this stay. Category 3: Patient has SUSPECTED Obstructive Sleep Apnea and HAS NOT received narcotic, sedative or anesthesia administration during this stay. Category 4: Outpatient in Procedural Areas with known sleep apnea or who screen positive for High Risk via the STOP/BANG questionnaire. Exam Exam Vital Signs Vital Signs Date Time Temp Pulse Resp B/P Pulse Ox O2 Delivery O2 Flow Rate FiO2 01/03/17 13:51 37.1 75 18 155/75 93 Nasal Cannula 2.00 01/03/17 12:16 79 16 85 Room Air 01/03/17 09:54 37.3 75 16 130/73 91 Nasal Cannula 2.00 01/03/17 08:52 78 16 90 Nasal Cannula 2.00 General Appearance: Alert, Oriented X3, Cooperative, Severe Distress (Left hip pain with movement) HEENT/AIRWAY: MP 2, Neck Movement (FROM), Mouth Opening (3 FBMO) Lungs: Diminished, Coarse Heart: Other (AICD) Meds/Labs/Diagnostics Admission Meds Current Medications Carvedilol (Coreg) 25 mg BID PO Last administered on 01/03/17 08:40; Start at 20:30 Salmeterol Xinafoate/ Fluticasone (Advair 250-50) 1 puff BID INHALATION Last administered on 01/03/17 08:09; Start 01/02/17 at 20:30 Tiotropium Sharon (Spiriva 18mcg/ Cap for Inh) 18 mcg DAILY INHALATION Last administered on 01/03/17 08:09; Start 01/03/17 at 08:30 Atorvastatin Calcium (Lipitor) 10 mg HS PO Last administered on 01/02/17 21:13 ; Start 01/02/17 at 21:00 Insulin Glargine (Lantus Insulin Inj) 14 unit BID SUBQ Last administered on 08:46; Start 01/02/17 at 20:30 Lisinopril (Zestril) 10 mg BID PO Last administered on 01/02/17 21:13; Start 01/02/17 at 20:30 Insulin Human Lispro WMHS SUBQ Last administered on 01/03/17 08:08; Start at 17:30 Magnesium Sulfate 4 gm/Premix 100 ml @ 33.333 mls/ hr ONCE ONCE IV Last administered on 01/02/17 18:12; Start 01/02/17 at 16:55; Stop 01/02/17 at 19:54 ; Status DC Potassium Chloride/Sodium Chloride (Normal Saline + KCl 20 mEq/L) 1,000 ml @ 100 mls/hr Q10H IV Last administered on 01/03/17 13:49; Start 01/02/17 at 16: 55 Gabapentin (Neurontin) 300 mg HS PO Last administered on 01/02/17 21:13; Start 01/02/17 at 21:00 Senna (Senokot S) 1 tablet BID PO Last administered on 01/02/17 21:14; Start 01/02/17 at 20:30; Stop 01/03/17 at 16:16; Status DC Nicotine (Nicoderm 21 mg/ 24 Hr Patch) 1 patch ONCE ONCE TOPICAL Last administered on 01/02/17 18:09; Start 01/02/17 at 17:20; Stop 01/02/17 at 17:24 ; Status DC Albuterol (AccuNeb 2.5 mg/ 3 mL Inh) 2.5 mg Q4H NEB Last administered on 08:51; Start 01/02/17 at 17:35; Stop 01/03/17 at 09:10; Status DC Albuterol (AccuNeb 2.5 mg/ 3 mL Inh) 2.5 mg QID NEB Last administered on 12:16; Start 01/03/17 at 11:30 Bedside Blood Glucose: 128 Labs Test 01/02/17 14:08 01/02/17 15:09 01/02/17 15:38 01/03/17 05:35 Total Bilirubin 0.2mg/dL (0.0-1.2) Aspartate Amino Transf (AST/SGOT) 27U/L (0-50) Alanine Aminotransferase (ALT/SGPT) 18U/L (0-32) Alkaline Phosphatase 57U/L (25-165) Troponin T < 0.010ug/L (0.0-0.011) Total Protein 6.8g/dL (6.4-8.4) Albumin 3.5g/dL (3.4-5.0) Parathyroid Hormone (Intact) 92pg/mL (15-65) Urine Color Yellow (YELLOW) Urine Appearance Clear (CLEAR,HAZY) Urine pH 6.0 (5.0-8.0) Urine Specific [place] 1.010 (1.003-1.035) Urine Protein Negativemg/dL (NEG,TRACE) Urine Glucose (UA) 500mg/dL (NEGATIVE) Urine Ketones Negativemg/dL (NEGATIVE) Urine Occult Blood Negative (NEGATIVE) Urine Nitrite Positive (NEGATIVE) Urine Bilirubin Negative (NEGATIVE) Urine Urobilinogen Normalmg/dL (NORMAL) Urine Leukocyte Esterase Trace (NEGATIVE) Urine RBC 0-2/hpf (0-2) Urine WBC 11-50/hpf (0-5) Urine Epithelial Cells Few/hpf (NONE-MOD) Urine Crystals None seen (NONE SEEN) Urine Bacteria Many/hpf (NONE-FEW) Urine Hyaline Casts None/lpf (NONE) Urine Granular Casts None seen (NONE SEEN) Urine Waxy Casts None seen (NONE SEEN) Urine Red Blood Cell Casts None seen (NONE SEEN) Urine White Blood Cell Casts None seen (NONE SEEN) Urine Mucus None seen (None Seen) Urine Trichomonas None seen (NONE SEEN) Urine Yeast None (NONE SEEN) Urinalysis Comment None Urine Culture Reflexed Indicated White Blood Count 6.4th/mm3 (3.8-10.1) Red Blood Count 4.33mil/mm3 (3.90-5.20) Hemoglobin 13.2g/dL (12.0-15.6) Hematocrit 37.0% (35.0-46.0) Mean Corpuscular Volume 85.5fL (81-100) Mean Corpuscular Hemoglobin 30.5pg (27.0-35.0) Mean Corpuscular Hemoglobin Concent 35.7% (32.0-37.0) Red Cell Distribution Width 12.8% (12.3-15.4) Platelet Count 102bil/L (150-400) Neutrophils (%) (Auto) 76.4% (40-74) Lymphocytes (%) (Auto) 12.5% (14-46) Monocytes (%) (Auto) 9.0% (4-12) Eosinophils (%) (Auto) 1.6% (0-5) Basophils (%) (Auto) 0.3% (0-3) Sodium Level 135mEq/L (134-144) Potassium Level 4.1mEq/L (3.5-5.2) Chloride Level 95mEq/L (97-108) Carbon Dioxide Level 27mmol/L (18-29) Blood Urea Nitrogen 11mg/dL (8-27) Creatinine 0.59mg/dL (0.57-1.00) Estimat Glomerular Filtration Rate 142mL/min (>59) Glucose Level 212mg/dL (60-99) Calcium Level 8.1mg/dL (8.5-10.1) Magnesium Level 1.9mg/dL (1.6-2.6) Plan Impression Patient chart reviewed, patient interviewed and anesthestic plan with risks, benefits, and alternatives discussed, and informed consent obtained. NPO per Anesth. Guidelines: Yes ASA Physical Status: ASA3 Plus Emergency Anesthetic Plan: GA Bene/Risks/Altern/Consents: Yes HP Complete Prior to Induction: Yes Other Can't perform SAB as patient recently took Plavix. Long discussion with the patient about the risks of GETA. She reversed her DNI/DNR knowing that she would have to be intubated for surgery. We also discussed the significant risk of remaining intubated and going to the ICU on a ventilator. All questions were answered and the patient signed her consent and agreed to surgery despite knowing the risks. She also agreed to blood products if needed and possible rescue Left Femoral Nerve Block for postoperative control if needed. The possible nerve block would also have increased risks of hemorrhage because of her recent plavix use. David Ford MD January 03, 2017 16:24
--- NOTE | 2017-01-03 18:29 | PCM.ANEP1 ---
Post Anesthesia PACU Phase 1 Assessment Vital Signs Vital Signs Date Time Temp Pulse Resp B/P Pulse Ox O2 Delivery O2 Flow Rate FiO2 01/03/17 18:10 76 25 147/66 97 Simple Mask 8 01/03/17 18:05 75 25 121/63 97 Simple Mask 8 01/03/17 18:00 75 25 131/62 96 Simple Mask 8 01/03/17 17:55 36.6 72 21 134/58 95 Simple Mask 8 01/03/17 13:51 37.1 75 18 155/75 93 Nasal Cannula 2.00 01/03/17 12:16 79 16 85 Room Air Anesthetic Administered: GA Level of Alertness: Awake, talking ROCHE's with Equal Strength: Yes Pain: No Pain Scale Score: 8 Nausea or Vomiting: No CV Function & Hydration Stable: No Airway Device: Oxygen Delivery: Room Air Lungs: Diminished, Coarse Dermatome Level: Full Sensation PACU Phase 2 Assessment Complications: No Follow up Care: N/A Patient Instructions Provided: N/A David Ford MD January 03, 2017 18:29
[2017-01-03] MEDS: fentaNYL-PF 50 mCg/mL 2 mL Inj IVPUSH PRN ×4 (18:43→18:59)
--- NOTE | 2017-01-03 19:04 | DRSVH ---
PROCEDURE: X-RAY PELVIS W/LAT HIP (LT) ([id number]) INDICATIONS: post op TECHNIQUE: AP pelvis with lateral view(s) of the left hip(s). COMPARISON: [facility], , XR PELVIS W LATERAL HIP LT, 01/02/2017, 14:28. FINDINGS: Bones: Screw fixation of the proximal left femur. Hardware appears intact as is expected postoperativ e alignment. Mild/moderate right hip joint degeneration. Diffuse osteopenia. Soft tissues: The visualized bowel gas pattern is normal. No suspicious soft tissue calcifications. IMPRESSION: Status post internal fixation of the left femoral neck in expected postoperative alignmen t. Dictated by: Lucio Black M.D. on 01/03/2017 at 19:01 Approved by: Lucio Black M.D. on 01/03/2017 at 19:03
[2017-01-04] VITALS (10 sets, daily range): BP systolic 129–173; BP diastolic 70–84; PULSE 69–81; RESP 16–20; O2SAT 90–98
[2017-01-04] MEDS: Sodium Chloride LOK Flush 10 mL Syringe IV SCH ×3 (00:30→16:51)
[2017-01-04] MEDS ORDERED: 0.9% Sodium Chloride 100 ML ONE (00:33)
[2017-01-04] MEDS: CeFAZolin Inj 1 GM in IV Premix 1 EACH IV SCH ×2 (00:39→08:29)
--- NOTE | 2017-01-04 02:06 | NUR ---
Return from OR Pt returned from OR at 1940. Pt A/O and talking, drinking coffee. Pt on 7L o2 via oxy mask and sat 94%. Lowered o2 to 6L and Pt maintained 94%. Tried to restart IV fluids, IV clotted. D/C current IV IV restart completed and Fluids infusing. Pt states she has no pain. Dressing to left hip CDI. Pt has +CMS to BLLE and is moving feet and wiggling toes. Ice applied to hip. Will continue to lower Pt o2 through out shift as Pt is not normally o2 dependent. Care continues Addendum: 01/04/17 at 0451 by ARMAND MCGOWAN RN update Pt o2 has been decreased to 1L via NC, maintaining sat at 92%, drops into 80's when removing o2. Pt tolerating PO intake well
[2017-01-04 06:36] LABS: BASOPHILS % (AUTO) 0.1 % (0-3); EOSINOPHILS % (AUTO) 0 % (0-5); MONOCYTES % (AUTO) 4.7 % (4-12); Mean Corpuscular Hemoglobin 30.6 pg (27.0-35.0); Mean Corpuscular Volume 85.1 fL (81-100); NEUTROPHILS % (AUTO) 89.8 % (40-74); Platelet Count 108 bil/L (150-400)
[2017-01-04] MEDS: Albuterol 2.5 mg/3 mL Inhalation Solution NEB SCH ×4 (07:38→19:44)
--- NOTE | 2017-01-04 08:05 | PCM.PNORTH ---
Subjective Date of Service: January 04, 2017 Visit Information: Reason for Visit Left Hip Fracture Surgery/Surgery Date Post-Op Day # Date of Admission: January 02, 2017 at 16:27 Hospital Day # Subjective Found patient awake and alert this morning. No complaints of pain. Patient states she lives at home with her disabled son and they take care of each other. I have discussed with patient this morning the possibility of discharging to a usp facility if needed. She seems willing to do this if this is required. I discussed with patient her performance with formal physical therapy and encouraged her to be as active as possible as soon as possible. We have discussed toe-touch weightbearing only on the left lower extremity this morning and I have demonstrated this to her Postop General: No Complaints, No Shortness of Breath, No Chest Pain Pain Management: IV Push Objective Exam Objective Alert and oriented 3 and pleasant. Interoperative dressing is clean dry and intact Calf and thigh are soft and nontender Toe wiggle and sensation are intact at left lower extremity distally Bilateral SCDs are in place Ding in place and working. No physical therapy yet as of this time Vital Signs and I/O Vital Sign - Last Date Time Temp Pulse Resp B/P Pulse Ox O2 Delivery O2 Flow Rate FiO2 01/04/17 05:55 75 01/04/17 04:31 36.8 16 166/70 93 Nasal Cannula 1.00 01/02/17 17:25 97 Intake and Output 01/03/17 01/03/17 01/04/17 Cumulative From/Thru 15:00 23:00 07:00 01/02/17 13:57 - 01/04/17 04:33 Intake Total 2008 ml 3396 ml Output Total 400 ml 850 ml Balance 1608 ml 2546 ml Intake Oral 200 ml IV Total 2008 ml 3196 ml Output Urine Total 300 ml 750 ml Estimated Blood Loss 100 ml 100 ml # Voids 1 1 # Bowel Movements 0 Lab & Micro Results Laboratory Tests Test 01/04/17 06:00 White Blood Count 7.6th/mm3 (3.8-10.1) Red Blood Count 4.15mil/mm3 (3.90-5.20) Hemoglobin 12.7g/dL (12.0-15.6) Hematocrit 35.3% (35.0-46.0) Mean Corpuscular Volume 85.1fL (81-100) Mean Corpuscular Hemoglobin 30.6pg (27.0-35.0) Mean Corpuscular Hemoglobin Concent 36.0% (32.0-37.0) Red Cell Distribution Width 12.8% (12.3-15.4) Platelet Count 108bil/L (150-400) Neutrophils (%) (Auto) 89.8% (40-74) Lymphocytes (%) (Auto) 5.1% (14-46) Monocytes (%) (Auto) 4.7% (4-12) Eosinophils (%) (Auto) 0% (0-5) Basophils (%) (Auto) 0.1% (0-3) Microbiology 01/02/17 Blood Culture - Preliminary, Resulted NO GROWTH AFTER 24 HOURS 01/02/17 Urine Culture - Final, Complete Escherichia Coli Result Diagram: 01/04/17 0600 01/03/17 0535 General Appearance: Alert, Oriented X3, Cooperative, No Acute Distress Extremities: No Compartment Syndrom Noted, Thigh & Calf Soft/Nontender Postop Sensory Motor: Distal Motor Intact, Movement in Toes, Distal Sensation Intact Activity: Activity per PT, Ambulate with PT (touch toe weightbearing only on the left lower extremity using frontwheel walker) Catheters: Urethral 2 Way Ding (discontinue Ding on postop day 1 after first PT session) Assessment & Plan Impression Patient is a 76-year-old female whom is postop day 1 from left hip pinning performed on 01/03/2017. She lives at home with her disabled son and is independent baseline. She indicates they take care of each other. She anticipates discharge to home but is willing to discharge to usp facility if need be. Problems: Plan Postop day #1 from left hip pinning performed on 01/03/[address] Gurwinder Duke. Touch toe weightbearing only on the left lower extremity using front wheel walker. Continue formal physical therapy for mobility, gait and safety. Move patient to by mouth pain medication only as soon as possible today avoiding IV pain medication as possible. Continue Lovenox 40 mg subcutaneous daily 2 weeks postop with transition to ASA 325 mg EC by mouth twice a day for an additional 4 weeks totaling 6 weeks postoperative DVT prophylaxis Discontinue Ding today on postop day #1 after first PT session Interoperative dressing will be changed on postop day #2 Nursing please measure and fit bilateral thigh-high MONI hose as ordered today. Nursing please discontinue Ding today after first PT session Follow-up in 2 weeks at [facility] orthopedic clinic with mid-level provider for wound check and suture removal. Follow-up in 6 weeks at [facility] orthopedic clinic with Dr. Gurwinder Duke with AP pelvis and left crosstable lateral hip x-rays on arrival. Anticipate discharge to home on or before postop day #3. VTE Prophylaxis: Sub-Q Enoxaparin (Lovenox 40 mg subcutaneous daily 2 weeks postop with transition to ASA 325 mg EC by mouth twice a day for an additional 4 weeks postop totaling 6 weeks postoperative DVT prophylaxis), SCDs (bilateral SCDs), MONI Hose (bilateral MONI hose will be ordered today) Roddy Pisano PA-C January 04, 2017 08:05
[2017-01-04] MEDS ORDERED: oxyCODONE-Acetamin 5-325 mg Tablet PO PRN (08:15)
[2017-01-04] MEDS: Omega-3 Fatty Acids 1,000 mg Capsule PO SCH (08:20)
[2017-01-04] MEDS ORDERED: hydrOXYzine Pamoate 25 mg Capsule PO PRN (08:20)
[2017-01-04] MEDS: guaiFENesin 600 mg ER12 Tablet PO SCH ×2 (08:21→21:21)
[2017-01-04] MEDS: Vitamins C,E, Omega-3, Mineral Tablet PO SCH (08:21)
[2017-01-04] MEDS: Senna-Docusate 8.6-50 mg Tablet PO SCH ×2 (08:22→21:20)
[2017-01-04] MEDS: Fluticasone 0.05% 15 Spray/2 Gm 16 Gm Nasal Spray NASAL SCH (08:23)
[2017-01-04] MEDS: Tiotropium 18mcg/Cap 5 Capsule Inhaler Kit INHALATION SCH (08:23)
[2017-01-04] MEDS: Fluticasone-Salmererol 250-50 Inhaler INHALATION SCH ×2 (08:23→21:20)
[2017-01-04] MEDS: 0.9% NaCl + KCl 20 mEq/L 1,000 ML IV SCH (08:24)
[2017-01-04] MEDS: Insulin GLARgine 100 Unit/mL Syringe SUBQ SCH ×2 (08:26→21:30)
[2017-01-04] MEDS: Insulin LISPRO 300 Unit/3 mL Inj SUBQ SCH ×4 (08:28→21:32)
--- NOTE | 2017-01-04 08:35 | CONS ---
[address] [address] CONSULTATION REPORT PATIENT: LUIS CLARKE : 1940 MR#: [id number] ADMIT: 01/02/2017 JOB ID: [id number] DATE OF SERVICE: 01/03/2017 ORTHOPEDIC CONSULTATION: CHIEF COMPLAINT: Left hip pain. HISTORY OF PRESENT ILLNESS: This is a 76-year-old female that presents following a slip and fall in her bedroom. She states she was at the dresser when she went down, and had immediate left hip pain. She was unable to get up from off the ground, and crawled to the living room and called for her son. Her son is disabled, but she does live with him and helps take care of him. They were transported to the emergency department, where she was evaluated. She demonstrated a valgus impacted femoral neck fracture. Orthopedics was also consulted for further evaluation and treatment. She was admitted to the Hospital[facility] and placed n.p.o. at midnight. The patient currently complains of only left hip and groin pain. She denies any paresthesias to the left lower extremity. She denies any other associated symptoms or injuries. PAST MEDICAL HISTORY: Coronary artery disease, diabetes, COPD. PAST SURGICAL HISTORY: Cardiac pacemaker placement. FAMILY HISTORY: Noncontributory. SOCIAL HISTORY: The patient smokes 4-5 cigarettes a day. Denies any alcohol or illicit drug use. MEDICATIONS: Please see the electronic medical record for full list of patient's medications. ALLERGIES: 1. CODEINE. 2. METRONIDAZOLE. 3. CIPRO. REVIEW OF SYSTEMS: The patient denies any fevers, sweats, chills, chest pain, shortness of breath, nausea, vomiting, diarrhea. Complains mainly of left hip pain, as described in the history of present illness. PHYSICAL EXAMINATION: General: The patient is alert, in no apparent distress. HEENT: Normocephalic, atraumatic. Extraocular movements intact. Nares patent. Lungs: No audible wheezes. No overt signs of respiratory distress. Neuro: Cranial nerves 2-12 are intact. Extremities: On gross observation, the patient's left lower extremity is normal length, alignment, and rotation compared to the contralateral side. There are no open wounds, abrasions, or ecchymosis. Tenderness palpation to the groin, as well as the lateral proximal femur. She has palpable distal pulses, and is able to dorsiflex and plantar flex the ankle with minimal difficulty. Log-roll and axial loading does reproduce pain to the groin and the hip. DIAGNOSTIC STUDIES: An AP of pelvis and lateral of the left hip was obtained, demonstrating a valgus impacted femoral neck fracture. This was further confirmed with a CT obtained by the emergency department staff. IMPRESSION: Left intracapsular, valgus impacted, femoral neck fracture. PLAN: Discussed with the patient, her diagnosis, and we reviewed the radiographs. I discussed proceeding with open treatment with internal fixation of the left hip. She understood the risks included, but were not limited to neurovascular injury, tendon injury, infection, failure of fixation, stiffness, persistent pain, all of which may require further intervention. The patient had all questions answered. Consent was signed and placed in the chart. Following surgery, the patient will be in the hospital, working with Physical Therapy on postoperative day #1. Pending her progress with therapy, she will either be able to be discharged home with home health versus to a rehab versus snf facility. She will be toe-touch weightbearing with a walker following the surgery.
[2017-01-04] MEDS: HYDROcodone-APAP 5-325 mg Tablet PO PRN ×2 (10:11→16:06)
--- NOTE | 2017-01-04 11:10 | OP ---
[address] [address] OPERATIVE REPORT PATIENT: LUIS CLARKE : 1940 MR#: [id number] ADMIT: 01/02/2017 JOB ID: [id number] DATE OF SURGERY: 01/03/2017 PREOPERATIVE DIAGNOSIS(ES): Left intracapsular valgus impacted femoral neck fracture. POSTOPERATIVE DIAGNOSIS(ES): Left intracapsular valgus impacted femoral neck fracture. PROCEDURE: Open treatment with internal fixation of a left femoral neck fracture. SURGEON: Gurwinder Duke D.O. ANESTHESIA: General. HISTORY: The patient is a 76-year-old female that fell in her home. She landed onto her left side and had immediate pain to the hip and was not able to further ambulate. She is transported to the hospital where it was identified that she had a valgus impacted femoral neck fracture. With the fracture, I discussed with the patient open treatment with internal fixation of the left femoral neck fracture. She understood the risks include, but not limited to, neurovascular injury, tendon injury, infection, failure of fixation, stiffness, persistent pain, all of which may require further intervention. The patient had all questions answered. Informed consent was placed on the chart. PROCEDURE IN DETAIL: The patient was brought to the operative suite and placed supine on the operating room table. Surgical time-out was performed. Everyone in the room was in agreement. After appropriate anesthesia was obtained, the patient was placed onto the Anderson table. All prominences were well padded and the legs were placed into the fracture boots and the right leg dropped and scissored out of the way to allow for radiographic visualization of the left hip. The left hip was then prepped and draped in a sterile fashion. A 4 cm longitudinal incision was made along the lateral cortex of the proximal femur. Dissection was carried down towards the tensor fascia. The tensor fascia was then split and the vastus lateralis then elevated. The lateral cortex of the proximal femur was identified. A K-wire for a planned Synthes 7.3 mm partially threaded cannulated screw was advanced in an inferior position along the femoral neck taking care to ensure that the starting point was at or proximal to the level of the lesser trochanter. The wire was placed along the inferior neck into the head on the AP projection on lateral in a center/center position into the femoral head. This was verified with AP and lateral projections on fluoroscopy. A second wire was then placed in a superior position to the femoral head and neck and in the anterior position on the lateral projection of fluoroscopy. An inverted triangle configuration was then performed with a third wire placed in the superior posterior aspect of the neck and the head. Multiple views of fluoroscopy were utilized to verify appropriate placement of the wires. The lateral cortex was then drilled after direct measurements were made of each of the wires which were placed just underneath the subchondral bone of the femoral head. Three short thread Synthes 7.3 mm partially threaded cannulated screws with washers were then advanced starting first with the inferior screw followed by the posterior superior and then anterior superior screw. Excellent fixation was achieved with all screws. Final radiographic projections were identified demonstrating maintenance of the valgus impacted femoral neck fracture as well as appropriate placement of all three screws. Further irrigation was performed followed by closure of the overlying tensor fascia with 0-Vicryl, 2-0 Vicryl for the subcutaneous tissues and paulette for the skin. The patient was then placed in a bulky soft dressing. ESTIMATED BLOOD LOSS: 100 cc. COMPLICATIONS: None. DISPOSITION: The patient tolerated the procedure well. Anesthesia was reversed and the patient was transferred back to recovery. POSTOPERATIVE PLAN: The patient will be toe-touch weightbearing with a walker onto the left lower extremity. Ding will be discontinued on postoperative day #1. Dressings will be changed on postoperative day #2. She will be continued on DVT prophylaxis pending her progress with physical therapy while hospitalized. She will either be discharged home with Home Health versus a rehabilitation center versus nursing home facility. Followup in the office will be two weeks with repeat x-rays consisting of AP of the pelvis and lateral of the left hip at that time.
--- NOTE | 2017-01-04 12:30 | NUR ---
MARCELO D/Natty'd Patient's rome removed @ 1200 after 1st therapy session. Patient had urge to void within 10mins, but was only able to void 25ml. Patient reluctant to drink fluid because of not wanting to get up to [facility]. Advised patient if she didn't feel like she could get up to [facility] we could always use the bed geiger. Addendum: 01/04/17 at 1542 by TIFFANI CASE RN Patient was able to void another 100ml since rome removed.
--- NOTE | 2017-01-04 13:13 | NUR ---
Social work note - Initial assessment Mercedes Roy is a 76 yr old admitted for L Hip Fx - fell at home. EMR reviewed: Pt has Medicare insurance, her PCP is Dr Witt. No LTC insurance, No VA benefits. Readmit score is 5 - see attached CM initial assessment. LABOR DELIVERY RN met with pt- introduced D/C planning and explained SW role. Pt lives at home with her disabled son. they care for each other. Pt states that she would like to go home at d/c but identifies that she is non-weight bearing at this time on her leg. She has used [facility] in the past. No hx of SNF. PT is to work with pt and LABOR DELIVERY RN will follow MD's directive - pending evaluation. Assessment: Pt who has limited support at home - may benefit from SNF for rehab. Plan: Developing - Either SNF for rehab vs home with Home Health. RHONA Caro Addendum: 01/04/17 at 1317 by KAIN BALES Amended: Links added.
--- NOTE | 2017-01-04 14:37 | PCM.PNMED ---
Subjective Date of Service January 04, 2017 Subjective Patient feels that she is doing much better. Breathing is improved, pain is better. She is anxious to get moving. No chest pain, no nausea or vomiting Exam Vital Signs Vital Sign - Last Date Time Temp Pulse Resp B/P Pulse Ox O2 Delivery O2 Flow Rate FiO2 01/04/17 11:30 70 18 92 Nasal Cannula 1.00 01/04/17 10:05 36.6 173/78 01/02/17 17:25 97 Intake and Output 01/03/17 01/03/17 01/04/17 Cumulative From/Thru 15:00 23:00 07:00 01/02/17 13:57 - 01/04/17 04:33 Intake Total 2008 ml 3396 ml Output Total 400 ml 850 ml Balance 1608 ml 2546 ml Intake Oral 200 ml IV Total 2008 ml 3196 ml Output Urine Total 300 ml 750 ml Estimated Blood Loss 100 ml 100 ml # Voids 1 1 # Bowel Movements 0 Exam Gen.- A+ O 3 no apparent distress. Eyes- open conjunctiva clear, pupils equal nonicteric ENT- ears normal, nose normal, hearing intact Neck- supple/trach midline CVS- RRR (-)mumrur/gallop Lungs- CTA GI- NABS/NT soft Musc- moving 4 no obvious deformity. Neuro- cranial nerves II through XII intact to gross examination, nonfocal Skin- warm and dry, no rashes/lesions/wounds noted Psych- pleasant and appropriate, Lab and Diagnostics Result Diagram: 01/04/17 0600 01/03/17 0535 X-Rays, CTs and MRIs PROCEDURE: CT HIP LEFT W/O CONTRAST (00998) Subcapital left femoral neck fracture. Possible subtle nondisplaced fracture of the right pubic body, however recommend clinical correlation to point tenderness since this is technically indeterminate. Diffuse osteopenia Dictated by: Lucio Black M.D. on 01/02/2017 at 15:54 PROCEDURE: X-RAY PELVIS W/LAT HIP (LT) ([id number]) Left femoral neck fracture Dictated by: Lucio Black M.D. on 01/02/2017 at 15:12 12-lead ECG EKG rate 67, QTC [address], [address] segment changes personally reviewed by me . Atrial-sensed ventricular-paced complexes . When compared with ECG of 17-Nov-2015 10:16:18, . No significant change Cardiac Echo Impressions Echocardiogram Report Interpretation Summary Left ventricular ejection fraction is estimated to be .55. Spectral Doppler of the mitral valve is reversed, with an E/A wave ratio < 1.0. There is a pacemaker lead in the right ventricle. There is mild aortic valve sclerosis. There is no significant valvular heart disease. Electronically signed by: Frank Yan on Reading Physician:11/05/2016 11:45 AM Assessment & Plan 76-year-old female complex medical history pacemaker included kathleen has left hip fracture. She is on Plavix. 01/03 patient lungs are improved, O2 needs are down they sound better. Blood sugar 128 this morning, no changes to diabetic regimen at present. Blood pressure adequately controlled no changes. Perhaps 01/04 postop day 1 will make some adjustments to blood pressure/diabetic regimen. Patient medically optimized to go to OR. 01/04 patient's doing well postop day #1. Resuming HCTZ due to hypertension, patient may need lisinopril increased. Stopping Rocephin today, starting Augmentin 875 twice a day. starting prandial insulin 10 units lispro blood sugars running persistently 250-300. Her third midnight will be tonight and I think she will be dischargeable 01/05. Left hip fracture- nothing by mouth at midnight, surgery planned with Dr. Duke -Tums 3 times a day, cholecalciferol, PTH ordered -UA likely dirty catch but will dose Rocephin to clean as there are bacteria. CAD/HTN/lipid -Echo EF 55% 12/06/16 no concerning EKG changes 01/02 -Hold lisinopril/hctz and clopidogrel preop resumed 01/04 -Continue Coreg, aspirin, statin, -Adding when necessary hydralazine COPD exacerbation-URI/sinusitis- CXR no active disease 01/03 - continue albuterol when necessary and I will give nebs preop vigorous pulmonary toilet I asked an Acapella -Continue home Spiriva and albuterol MDI when necessary -Adding Rocephin, Mucinex, benzonatate and Flonase 01/02, -Start Augmentin 875 mg twice a day 01/04 and Lactobacillus Insulin-dependent diabetes- blood sugars running persistently 250-300 01/04, starting prandial insulin 10 units lis pro 01/04 -Cutting dose from 25 units and 21 units a.m. and p.m. to 14 units twice a day adding medium dose sliding scale -Hyperglycemia will supplement and follow with sliding scale as needed Hypomagnesemia-4g replacement ordered 01/02,1.8 01/04 continue replacing by mouth monitoring. Tobacco abuse-recommend cessation, nicotine replacement Prophylaxis-DVT with SCDs and then per ortho, GI not indicated Disposition-patient comes from home most likely going to SNF and is DO NOT RESUSCITATE confirmed 01/02 VTE Prophylaxis: Sub-Q Enoxaparin (Lovenox 40 mg subcutaneous daily 2 weeks postop with transition to ASA 325 mg EC by mouth twice a day for an additional 4 weeks postop totaling 6 weeks postoperative DVT prophylaxis), SCDs (bilateral SCDs), MONI Hose (bilateral MONI hose will be ordered today) VTE Mechanical Devices: Intermittant Pneumatic CD Markel Hahn MD January 04, 2017 14:37
--- NOTE | 2017-01-04 15:19 | NUR ---
Social work note - Continued D/C plan GUIDANCE ADVISER received orders to explore SNF for rehab from - GUIDANCE ADVISER met with pt - provided choices list for SNF> Pt states that she is nervous about going to SNF for rehab. She states that her son in a SNF 8 years ago and she worries that she will go there to as well. She also worries that her son is at home. GUIDANCE ADVISER explained that pt would be going for rehab after her fall - to have the help she needs to get stronger and return home safe. Pt asked that a referral be sent to [facility] - she lives near their facility and her son would be able to visit her there. She wants to talk with her family about going to SNF but would like the referral process to start. GUIDANCE ADVISER asked [facility] to begin referral. GUIDANCE ADVISER completed PASSR - faxed to facility, paperwork on chart. Plan: Referral to [facility] - GUIDANCE ADVISER will continue to follow. RHONA Caro
--- NOTE | 2017-01-04 16:04 | NUR ---
Social work Note Pt has been accepted at [facility] is willing to visit pt to provide support and answer questions. Plan: To [facility] (A) RHONA Caro
--- NOTE | 2017-01-04 18:00 | NUR ---
PAIN/ACTIVITY/RESP Patient's L hip pain has been well controlled with 2 tabs [place]. Has been able to get up to [facility] with FWW and 1 person CGA/CBA. Maintaining TTWB on LLE. Still requiring 2 LPM O2 via NC. O2 sats drops to mid 80's on RA with activity or at rest. Continue to encourage use of incentive spirometer, has also been receiving neb txts from [facility].
[2017-01-04] MEDS: Amoxicillin-Clav 875-125 mg Tablet PO SCH (21:20)
[2017-01-05] MEDS: Sodium Chloride LOK Flush 10 mL Syringe IV SCH ×2 (00:14→09:17)
[2017-01-05] MEDS: HYDROcodone-APAP 5-325 mg Tablet PO PRN ×2 (00:17→05:33)
[2017-01-05 01:05] VITALS: BP 145/77; PULSE 69; RESP 18; O2SAT 96
--- NOTE | 2017-01-05 01:20 | NUR ---
BLOOD SUGAR HS blood sugar was 123, pt received 7 units (half of full 14 units) of lantus per orders. At 0000, propellant charge loader stated pt reported her blood sugar felt low and it was 93. cutting table operator first gave milk and sandwich. Pt soon reported she felt a lot better. She stated "I always stay above 125. Otherwise I feel yucky." Will reassess blood sugars as needed and ACHS.
[2017-01-05 04:28] VITALS: BP 143/84; PULSE 83; RESP 18; O2SAT 93
[2017-01-05] MEDS: Ondansetron 2 mg/mL 2 mL Inj IVPUSH PRN ×2 (04:46→09:12)
[2017-01-05] MEDS: Albuterol 2.5 mg/3 mL Inhalation Solution NEB SCH (08:06)
[2017-01-05] MEDS: Insulin LISPRO 300 Unit/3 mL Inj SUBQ SCH ×2 (09:16→12:26)
[2017-01-05] MEDS: Fluticasone-Salmererol 250-50 Inhaler INHALATION SCH (09:16)
[2017-01-05] MEDS: Fluticasone 0.05% 15 Spray/2 Gm 16 Gm Nasal Spray NASAL SCH (09:17)
[2017-01-05] MEDS: Tiotropium 18mcg/Cap 5 Capsule Inhaler Kit INHALATION SCH (09:17)
[2017-01-05] MEDS: Amoxicillin-Clav 875-125 mg Tablet PO SCH (09:17)
[2017-01-05] MEDS: guaiFENesin 600 mg ER12 Tablet PO SCH (09:19)
[2017-01-05] MEDS: Omega-3 Fatty Acids 1,000 mg Capsule PO SCH (09:20)
[2017-01-05] MEDS: Senna-Docusate 8.6-50 mg Tablet PO SCH (09:20)
[2017-01-05] MEDS: Vitamins C,E, Omega-3, Mineral Tablet PO SCH (11:43)
[2017-01-05] MEDS: Insulin GLARgine 100 Unit/mL Syringe SUBQ SCH (11:43)
--- NOTE | 2017-01-05 11:49 | PCM.PNORTH ---
Subjective Date of Service: January 05, 2017 Visit Information: Reason for Visit Left Hip Fracture Surgery/Surgery Date Post-Op Day # 2 Date of Admission: January 02, 2017 at 16:27 Hospital Day # Subjective Patient states she had a "rough night" with pain and inability to sleep. She said she had nausea from the pain medications but states they have switched her to a new one and she is feeling better. She states she has no pain at this time. Postop General: No Complaints, No Shortness of Breath, No Chest Pain Pain Management: PO Objective Exam Objective Sitting up in bed Vital Signs and I/O Vital Sign - Last Date Time Temp Pulse Resp B/P Pulse Ox O2 Delivery O2 Flow Rate FiO2 01/05/17 04:28 36.8 83 18 143/84 93 Nasal Cannula 2.00 01/02/17 17:25 97 Intake and Output 01/04/17 01/04/17 01/05/17 Cumulative From/Thru 15:00 23:00 07:00 01/02/17 13:57 - 01/05/17 06:14 Intake Total 2288 ml 600 ml 30 ml 6314 ml Output Total 1000 ml 800 ml 450 ml 3100 ml Balance 1288 ml -200 ml -420 ml 3214 ml Intake Oral 1233 ml 600 ml 2033 ml IV Total 1055 ml 30 ml 4281 ml Output Urine Total 1000 ml 800 ml 2550 ml Emesis 450 ml 450 ml Estimated Blood Loss 100 ml # Voids 1 # Bowel Movements 0 0 0 Lab & Micro Results Microbiology 01/02/17 Blood Culture - Preliminary, Resulted No growth at 2 days; culture examined... 01/02/17 Urine Culture - Final, Complete Escherichia Coli Result Diagram: 01/04/17 0600 01/03/17 0535 General Appearance: Alert, Oriented X3, Cooperative, No Acute Distress Extremities: Distal Pulses Palpable, No Compartment Syndrom Noted, Thigh & Calf Soft/Nontender Postop Sensory Motor: Distal Motor Intact, Movement in Toes, Distal Sensation Intact, NVI Distally SURGICAL WOUND : Wound Location/Description Perioperative dressing c/d/i Incision General Appearance: No Direct Observation Activity: Activity per PT, Ambulate with PT (touch toe weightbearing only on the left lower extremity using frontwheel walker) Catheters: Urethral 2 Way Ding (discontinue Ding on postop day 1 after first PT session) Assessment & Plan Impression POD#2 left femoral neck fracture ORIF Problems: Plan Weightbearing: Toe-touch weightbearing with a front-wheeled walker DVT prophylaxis: Plavix? Physical therapy for transfers, progressive ambulation, strengthening Wound care: Perioperative dressing shoulder be changed to an island dressing today. Analgesia: Patient would benefit from non-opioid pain medications.My recommendation is for IV acetaminophen q6h for 24h. Discharge plan: Discharge SNF vs home in 1-2 days. Start outpatient physical therapy next week. Follow-up plan: In 2 weeks at [facility] with YONIS for wound check with xrays and at [address] Duke. VTE Prophylaxis: Sub-Q Enoxaparin (Lovenox 40 mg subcutaneous daily 2 weeks postop with transition to ASA 325 mg EC by mouth twice a day for an additional 4 weeks postop totaling 6 weeks postoperative DVT prophylaxis), SCDs (bilateral SCDs), MONI Hose (bilateral MONI hose will be ordered today) Deisi De La Cruz PA-C January 05, 2017 11:49
[2017-01-05 13:41] VITALS: BP 137/69; PULSE 60; RESP 16; O2SAT 97
[2017-01-05] MEDS ORDERED: INSU100I13 SUBQ (14:55)
[2017-01-05] MEDS ORDERED: HYDR-4003 PO (14:55)
[2017-01-05] MEDS ORDERED: GABA300C PO (14:55)
--- NOTE | 2017-01-05 14:57 | PCM.DC.MED ---
Discharge Summary Date of Service January 05, 2017 Dates of Hospitalization Date of Hospital Admission January 02, 2017 at 16:27 Date of Discharge: January 05, 2017 Providers: Admitting Physician: Markel Hahn MD Primary Care Physician: Shawn Witt Attending Physician: Markel Hahn MD Diagnosis at Time of Discharge Diagnosis at Time of Discharge Subcapital left femoral neck fracture. Consultations Ortho surgery Procedures XRay, CTs & MRIs PROCEDURE: CT HIP LEFT W/O CONTRAST (03453) Subcapital left femoral neck fracture. Possible subtle nondisplaced fracture of the right pubic body, however recommend clinical correlation to point tenderness since this is technically indeterminate. Diffuse osteopenia Dictated by: Lucio Black M.D. on 01/02/2017 at 15:54 PROCEDURE: X-RAY PELVIS W/LAT HIP (LT) ([id number]) Left femoral neck fracture Dictated by: Lucio Black M.D. on 01/02/2017 at 15:12 ECG 12 Lead EKG rate 67, QTC [address], [address] segment changes personally reviewed by me . Atrial-sensed ventricular-paced complexes . When compared with ECG of 17-Nov-2015 10:16:18, . No significant change Cardiac Echo Impression Echocardiogram Report Interpretation Summary Left ventricular ejection fraction is estimated to be .55. Spectral Doppler of the mitral valve is reversed, with an E/A wave ratio < 1.0. There is a pacemaker lead in the right ventricle. There is mild aortic valve sclerosis. There is no significant valvular heart disease. Electronically signed by: Frank Yan on Reading Physician:11/05/2016 11:45 AM Hospital Course 76-year-old female with past medical history of COPD, diabetes, hyperglycemia, tobacco use, COPD, hypertension, arrhythmia status post pacemaker placement. Patient fell at home and was brought to the hospital. here she was diagnosed with Subcapital left femoral neck fracture. Orthopedic surgery was consulted. The surgery was done on 01/03/[address] Duke. She also had urinalysis which showed some pyuria. Patient was started on ceftriaxone which was later switched to Augmentin. Patient did not have any symptoms of UTI on day of discharge. She also had low magnesium which was replaced with IV magnesium. Patient was advised to quit smoking. Physical therapy was consulted. Pain was treated with IV and oral opioids. The patient improved she was transferred to half-way facility to continue her rehabilitation. She will follow-up with her primary doctor after discharge. Ortho surgery team advised DVT prophylaxis with Lovenox 40 mg daily for x 2 weeks and then aspirin twice daily for 4 weeks. Patient is also taking Plavix PO. I called [facility] today and passed orthopedic surgery recommendations to the nurse who was actually putting admission orders for the patient. at [facility]. Patient also takes Aspirin and Plavix for history of CAD. Patient Condition @ Discharge: good Discharge Disposition: SNF Discharge Activity: Physical therapy Discharge Diet: regular, control diet, heart healthy, low fat, low salt, high fiber Information Provided to Patient: information about discharge medications. Discharge Medications: I discussed with patient medication dosage, usage, goals of therapy, side effects, alternatives. During discharge patient was allert, oriented, able to make own informed decisions. We discussed possible severe side effects, adverse reactions, benefits, risks, alternatives of current and newly prescribed medications and diagnostic procedures. Patient verbalized understanding and agreed to current plan of care and discharge. TIME SPENT IN DISCHARGE ACTIVITY: activity greater then 30 minutes spent in discharge activity. 1. Discussed with patient re: discharge plan of care/treatment, and follow up care/services. 2. Patient agreed with discharge plan and further plan of care, all questions were answered/addressed, no further questions at the time of discharge. Exam Vital Signs (Last) Date Time Temp Pulse Resp B/P Pulse Ox O2 Delivery O2 Flow Rate FiO2 01/05/17 13:41 36.5 60 16 137/69 97 Nasal Cannula 2.00 01/02/17 17:25 97 Test 01/02/17 14:08 01/02/17 15:09 01/02/17 15:38 01/03/17 05:35 Total Bilirubin 0.2mg/dL (0.0-1.2) Aspartate Amino Transf (AST/SGOT) 27U/L (0-50) Alanine Aminotransferase (ALT/SGPT) 18U/L (0-32) Alkaline Phosphatase 57U/L (25-165) Troponin T < 0.010ug/L (0.0-0.011) Total Protein 6.8g/dL (6.4-8.4) Albumin 3.5g/dL (3.4-5.0) Parathyroid Hormone (Intact) 92pg/mL (15-65) Urine Color Yellow (YELLOW) Urine Appearance Clear (CLEAR,HAZY) Urine pH 6.0 (5.0-8.0) Urine Specific [place] 1.010 (1.003-1.035) Urine Protein Negativemg/dL (NEG,TRACE) Urine Glucose (UA) 500mg/dL (NEGATIVE) Urine Ketones Negativemg/dL (NEGATIVE) Urine Occult Blood Negative (NEGATIVE) Urine Nitrite Positive (NEGATIVE) Urine Bilirubin Negative (NEGATIVE) Urine Urobilinogen Normalmg/dL (NORMAL) Urine Leukocyte Esterase Trace (NEGATIVE) Urine RBC 0-2/hpf (0-2) Urine WBC 11-50/hpf (0-5) Urine Epithelial Cells Few/hpf (NONE-MOD) Urine Crystals None seen (NONE SEEN) Urine Bacteria Many/hpf (NONE-FEW) Urine Hyaline Casts None/lpf (NONE) Urine Granular Casts None seen (NONE SEEN) Urine Waxy Casts None seen (NONE SEEN) Urine Red Blood Cell Casts None seen (NONE SEEN) Urine White Blood Cell Casts None seen (NONE SEEN) Urine Mucus None seen (None Seen) Urine Trichomonas None seen (NONE SEEN) Urine Yeast None (NONE SEEN) Urinalysis Comment None Urine Culture Reflexed Indicated Sodium Level 135mEq/L (134-144) Potassium Level 4.1mEq/L (3.5-5.2) Chloride Level 95mEq/L (97-108) Carbon Dioxide Level 27mmol/L (18-29) Blood Urea Nitrogen 11mg/dL (8-27) Creatinine 0.59mg/dL (0.57-1.00) Estimat Glomerular Filtration Rate 142mL/min (>59) Glucose Level 212mg/dL (60-99) Hemoglobin A1c 8.4% (4.8-5.6) Calcium Level 8.1mg/dL (8.5-10.1) Magnesium Level 1.9mg/dL (1.6-2.6) Test 01/04/17 06:00 White Blood Count 7.6th/mm3 (3.8-10.1) Red Blood Count 4.15mil/mm3 (3.90-5.20) Hemoglobin 12.7g/dL (12.0-15.6) Hematocrit 35.3% (35.0-46.0) Mean Corpuscular Volume 85.1fL (81-100) Mean Corpuscular Hemoglobin 30.6pg (27.0-35.0) Mean Corpuscular Hemoglobin Concent 36.0% (32.0-37.0) Red Cell Distribution Width 12.8% (12.3-15.4) Platelet Count 108bil/L (150-400) Neutrophils (%) (Auto) 89.8% (40-74) Lymphocytes (%) (Auto) 5.1% (14-46) Monocytes (%) (Auto) 4.7% (4-12) Eosinophils (%) (Auto) 0% (0-5) Basophils (%) (Auto) 0.1% (0-3) Discharge Medications Discharge Medications Amlodipine (Amlodipine) 5 Mg Tablet 5 MG PO DAILY (Reported) Aspirin (Aspirin) 81 Mg Tablet 81 MG PO DAILY Prescribed by: JAZMIN BAUM MD Carvedilol (Carvedilol) 25 Mg Tablet 25 MG PO BID (Reported) Clopidogrel Bisulfate (Plavix) 75 Mg Tablet 75 MG PO DAILY (Reported) Fluticasone/Salmeterol (Advair 250-50 Diskus) 60 Puff/Inh Disk 1 PUFF INHALATION BID (Reported) Gabapentin (Neurontin) 300 Mg Capsule 300 MG PO HS Prescribed by: JAZMIN BAUM MD Insulin Glargine (Lantus U100 Solostar Insulin Pen) 100 Unit/1 Ml Insuln.pen 14 UNIT SUBQ BID Prescribed by: JAZMIN BAUM MD Insulin Human Lispro (HumaLOG U100 Insulin Vial) 100 Unit/Ml Unit UNIT SUBQ TIDWM (Reported) sliding scale insulin Lisinopril / HCTZ 20-25 mg (Lisinopril / HCTZ 20-25 mg) 1 Each Tablet 1 EACH PO DAILY (Reported) [place]-3 Fatty Acids/Fish Oil (Fish Oil Conc 1,000 mg Softgel) 1 Each Capsule 1 EACH PO DAILY (Reported) Pravastatin (Pravastatin) 40 Mg Tablet 40 MG PO DAILY (Reported) Tiotropium [place] (Spiriva) 18 Mcg Cap.w.dev 18 MCG INHALATION DAILY (Reported ) Vit C/Vit E/Lutein/Min/[place]-3 (Ocuvite Softgel) 1 Each Capsule 1 EACH PO DAILY (Reported) As needed Albuterol HFA (Proair HFA) 8.5 Gm Hfa.aer.ad 1-2 PUFFS INH Q4H PRN PRN For Shortness of Breath (Reported) Hydrocodone-Acetaminophen 5-325 mg (Hydrocodone-Acetaminophen 5-325 mg) 1 Each Tablet 1 TABLET PO Q4 PRN PRN For Mild Pain Prescribed by: JAZMIN BAUM MD Followup Plan Follow-up with PCP in: 1 week Norman Brunner MD January 05, 2017 14:57
--- NOTE | 2017-01-05 15:44 | NUR ---
Social Work Note: D&A: Received notification from MD that pt. okay to d/c to SNF today. Accepting SNF is [facility]. Placed call to Mili at [facility] and she confirms that they can accept today. Accepting MD is Dr. Rojas. Per Mili, [facility] has already received pt.'s PASRR. [employer] printed d/c packet for transfer. Met with pt. explained SW role. Pt. aware and agreeable to d/c plan today. No additional needs identified. Per Mili at [facility] they will pick pt. up today by 4:00pm. Pt. denies that any family members need to be notified. P: [facility] today. JAZMÍN Mac
[2017-01-05] MEDS ORDERED: ASPI-973 PO (16:04)
--- NOTE | 2017-01-05 18:31 | NUR ---
Discharge Orders for discharge to SNF received. The patient was made aware of the plan to discharge and was agreeable to go. Discharge packet arranged with help of social work. At time of discharge patient dressing clean, dry and intact, thigh high stockings in place, CMS intact. Patient states pain is within a tolerable level, denies nausea or other difficulty. Report called to receiving facility. Patient transferred via transport company to receiving facility.
== END 2017-01-05 16:10 | DRG 481 ==
LOC: EDBD 13:41 → SED 13:41 → OSC 16:27
PROVIDERS: ADMIT Hospitalist; ATTEND Hospitalist
PROC: 0QS704Z Reposition Left Upper Femur with Internal Fixation Device, Open Approach (ICD-10-PCS; principal; 2017-01-03 16:30)
DX: S72.012A Unspecified intracapsular fracture of left femur, initial encounter for closed fracture (principal); N39.0 Urinary tract infection, site not specified; J44.1 Chronic obstructive pulmonary disease with (acute) exacerbation; F17.210 Nicotine dependence, cigarettes, uncomplicated; I10 Essential (primary) hypertension; E11.65 Type 2 diabetes mellitus with hyperglycemia; Z66 Do not resuscitate; Z86.73 Personal history of transient ischemic attack (TIA), and cerebral infarction without residual deficits; Z79.4 Long term (current) use of insulin; W01.0XXA Fall on same level from slipping, tripping and stumbling without subsequent striking against object, initial encounter; Y92.003 Bedroom of unspecified non-institutional (private) residence as the place of occurrence of the external cause; Y99.8 Other external cause status; Z79.82 Long term (current) use of aspirin; Z95.810 Presence of automatic (implantable) cardiac defibrillator; E83.42 Hypomagnesemia; E78.5 Hyperlipidemia, unspecified; J01.90 Acute sinusitis, unspecified